=== PATIENT | female | born 1935 | race Asian ===

== ENCOUNTER 2017-12-26 00:21 | Emergency (ER) | payer MEDICAID ==
[2017-12-26] MEDS ORDERED: Aspirin 81 MG Tab.Chew PO ONE (00:29)
--- NOTE | 2017-12-26 01:33 | EDM.PDOC ---
ED HPI GENERAL MEDICAL PROBLEM - General Chief Complaint: Chest Pain Stated Complaint: TROUBLE BREATHING Time Seen by Provider: 12/26/17 00:34 Source of Information: Reports: Patient, Family History Limitations: Reports: Language Barrier - History of Present Illness INITIAL COMMENTS - FREE TEXT/NARRATIVE: 82 y.o. german female with a h/o HTN came to the ed with her family/PC due to chest discomfort and dizziness, which is new to her. No trauma, no h/o heart issues in the past. Pt had poor water intake in the past few days. No other acute medical issues. BP 125/72 Pulse 98 RR 21 Pulse ox 98% on RA Temp 36.8 Onset: Today Onset Date: 12/25/17 Onset Time: 16:00 Duration: Hour(s):, Intermittent Location: Reports: Chest Quality: Reports: Burning Severity: Mild Improves with: Reports: None Worsens with: Reports: Movement Context: Reports: Other Associated Symptoms: Reports: Chest Pain Chest Pain Score (Numeric/FACES): 4 - Related Data Allergies Allergy/AdvReac Type Severity Reaction Status Date / Time acetaminophen [From Tylenol] Allergy Cannot Verified 12/26/17 00:28 Remember aspirin Allergy Cannot Verified 12/26/17 00:37 Remember Home Meds: Home Meds NIFEdipine [Procardia] 10 mg PO DAILY 12/26/17 [History] Past Medical History Cardiovascular History: Reports: Hypertension - Past Surgical History GI Surgical History: Reports: Cholecystectomy Social & Family History - Tobacco Use Smoking Status *Q: Never Smoker - Caffeine Use Caffeine Use: Reports: Coffee - Recreational Drug Use Recreational Drug Use: No ED ROS GENERAL - Review of Systems Review Of Systems: Unable To Obtain (Language barrier) ED EXAM, GENERAL - Physical Exam Exam: See Below Exam Limited By: Language Barrier General Appearance: Alert, WD/WN, Mild Distress Eye Exam: Bilateral Eye: Normal Inspection Ears: Normal External Exam Ear Exam: Bilateral Ear: Auricle Normal Nose: Normal Inspection Throat/Mouth: Normal Lips, Normal Gums, No Airway Compromise, Other (dry mucosal membranes) Head: Atraumatic, Normocephalic Neck: Normal Inspection, Supple, Non-Tender, Full Range of Motion Respiratory/Chest: No Respiratory Distress, Lungs Clear, Normal Breath Sounds, Chest Non-Tender Cardiovascular: Normal Peripheral Pulses, Regular Rate, Rhythm, No Edema, No Gallop, Tachycardia (102) Peripheral Pulses: 1+: Radial (L) GI/Abdominal: Normal Bowel Sounds, Soft, Non-Tender (Female) Exam: Deferred Rectal (Female) Exam: Deferred Back Exam: Normal Inspection, Full Range of Motion Extremities: Normal Inspection, Normal Range of Motion, Non-Tender Neurological: Alert, Oriented, CN II-XII Intact, Normal Cognition, Normal Gait, No Motor/Sensory Deficits Psychiatric: Normal Affect, Normal Mood Skin Exam: Warm, Dry, Intact, Normal Color, No Rash Lymphatic: No Adenopathy EKG INTERPRETATION EKG Date: 12/26/17 Time: 00:30 Rhythm: NSR Rate (Beats/Min): 99 [place]: Normal P-Wave: Present QRS: Normal ST-T: Normal QT: Normal Comparison: NA - No Prior EKG Course - Vital Signs Text/Narrative:: 82 y.o. german female with a h/o HTN came to the ed with her family/PC due to chest discomfort and dizziness, which is new to her. No trauma, no h/o heart issues in the past. Pt had poor water intake in the past few days. No other acute medical issues. BP 125/72 Pulse 98 RR 21 Pulse ox 98% on RA Temp 36.8 PE: WNWD 82 y.o german came with family due to c/p and dizziness. H/O HTN, No prev CAD, dry mucosal membrane Imaging: CXR: NAD Labs: Na 130. K 4.0 BUN 29 Cr 1.4 BUN/Cr ratio elevated BS 256 (pt ate [employer]UM[employer]) Impression: Dehydration, Hyponatremia, Atypical chest pain, elevated BUN/CR ratio TX: Pt drank 1 liter of water here in the ED, Reexam: c/p subsided, pt was able to ambulate well to the bathroom. Plan: D/C with instructions Last Recorded V/S: Last Vital Signs Temp 36.8 C 12/26/17 00:34 Pulse 113 H 12/26/17 01:45 Resp 21 H 12/26/17 00:34 BP 137/81 12/26/17 01:45 Pulse Ox 99 12/26/17 00:34 - Orders/Labs/Meds Orders: Active Orders 24 hr Category Date Time Status CXR [Chest 1V Frontal] [CR] Stat Exams 12/26/17 00:28 Taken UA W/MICROSCOPIC [URIN] Stat Lab 12/26/17 00:57 Ordered Labs: Laboratory Tests 12/26/17 12/26/17 12/26/17 Range/Units 00:40 00:40 00:40 WBC 9.2 (4.5-12.0) X10-3/uL RBC 3.95 (3.23-5.20) x10(6)uL Hgb 10.8 L (11.5-15.5) g/dL Hct 33.6 (30.0-51.3) % MCV 85.3 (80-96) fL MCH 27.5 L (27.7-33.6) pg MCHC 32.2 (32.2-35.4) g/dL RDW 12.3 (11.5-15.5) % Plt Count 220 (125-369) X10(3)uL MPV 7.8 (7.4-10.4) fL Neut % (Auto) 48.2 (46-82) % Lymph % (Auto) 39.3 H (13-37) % [place] % (Auto) 8.1 (4-12) % Eos % (Auto) 4 (1.0-5.0) % Baso % (Auto) 1 (0-2) % Neut # (Auto) 4.5 (1.6-8.3) # Lymph # (Auto) 3.6 (0.6-5.0) # [place] # (Auto) 0.7 (0.0-1.3) # Eos # (Auto) 0.4 (0.0-0.8) # Baso # (Auto) 0.0 (0.0-0.2) # PT 10.5 (8.7-11.1) INR 1.04 (0.89-1.13) Sodium 130 L (135-145) mmol/L Potassium 3.9 (3.5-5.3) mmol/L Chloride 95 L (100-110) mmol/L Carbon Dioxide 22 (21-32) mmol/L BUN 29 H (7-18) mg/dL Creatinine 1.4 H (0.55-1.02) mg/dL Est Cr Clr Drug Dosing 25.35 mL/min Estimated GFR (MDRD) 36 L (>60) BUN/Creatinine Ratio 20.7 H (9-20) Glucose 271 H (80-116) mg/dL Calcium 8.8 (8.6-10.2) mg/dL Troponin I (<0.017-0.056) ng/mL Urine Color (YELLOW) Urine Appearance (CLEAR) Urine pH (5.0-6.5) Ur Specific [place] (1.010-1.025) Urine Protein (NEGATIVE) mg/dL Urine Glucose (UA) (NEGATIVE) mg/dL Urine Ketones (NEGATIVE) mg/dL Urine Occult Blood (NEGATIVE) Urine Nitrite (NEGATIVE) Urine Bilirubin (NEGATIVE) Urine Urobilinogen (NEGATIVE) mg/dL Ur Leukocyte Esterase (NEGATIVE) Urine RBC (0) Urine WBC (0) Ur Squamous Epith Cells (NS,R,O) Urine Bacteria (NS) 12/26/17 12/26/17 Range/Units 00:40 00:57 WBC (4.5-12.0) X10-3/uL RBC (3.23-5.20) x10(6)uL Hgb (11.5-15.5) g/dL Hct (30.0-51.3) % MCV (80-96) fL MCH (27.7-33.6) pg MCHC (32.2-35.4) g/dL RDW (11.5-15.5) % Plt Count (125-369) X10(3)uL MPV (7.4-10.4) fL Neut % (Auto) (46-82) % Lymph % (Auto) (13-37) % [place] % (Auto) (4-12) % Eos % (Auto) (1.0-5.0) % Baso % (Auto) (0-2) % Neut # (Auto) (1.6-8.3) # Lymph # (Auto) (0.6-5.0) # [place] # (Auto) (0.0-1.3) # Eos # (Auto) (0.0-0.8) # Baso # (Auto) (0.0-0.2) # PT (8.7-11.1) INR (0.89-1.13) Sodium (135-145) mmol/L Potassium (3.5-5.3) mmol/L Chloride (100-110) mmol/L Carbon Dioxide (21-32) mmol/L BUN (7-18) mg/dL Creatinine (0.55-1.02) mg/dL Est Cr Clr Drug Dosing mL/min Estimated GFR (MDRD) (>60) BUN/Creatinine Ratio (9-20) Glucose (80-116) mg/dL Calcium (8.6-10.2) mg/dL Troponin I < 0.017 L (<0.017-0.056) ng/mL Urine Color Yellow (YELLOW) Urine Appearance Slightly cloudy (CLEAR) Urine pH 5.0 (5.0-6.5) Ur Specific [place] 1.005 L (1.010-1.025) Urine Protein Negative (NEGATIVE) mg/dL Urine Glucose (UA) 100 H (NEGATIVE) mg/dL Urine Ketones Negative (NEGATIVE) mg/dL Urine Occult Blood Negative (NEGATIVE) Urine Nitrite Negative (NEGATIVE) Urine Bilirubin Negative (NEGATIVE) Urine Urobilinogen Normal (NEGATIVE) mg/dL Ur Leukocyte Esterase Negative (NEGATIVE) Urine RBC 0-5 (0) Urine WBC 5-10 (0) Ur Squamous Epith Cells Few H (NS,R,O) Urine Bacteria Many H (NS) Meds: Medications Discontinued Medications Generic Name Dose Route Start Last Admin Trade Name Freq PRN Reason Stop Dose Admin Aspirin 324 mg 12/26/17 00:29 Aspirin PO 12/26/17 00:30 ONETIME ONE Departure - Departure Time of Disposition: 01:35 Disposition: Home, Self-Care 01 Condition: Good Clinical Impression: Dehydration, Hyponatremia, Abnormal TSC-jb-[id number] ratio, Tachycardia Instructions: Dehydration, Elderly, [id number] Referrals: PCP,None [Primary Care Provider] - Forms: ED Department Discharge Additional Instructions: Please increase water intake, please f/u with your Doctor, please come back to the ED if your symptoms get worse acutely - My Orders Last 24 Hours: My Active Orders 12/26/17 00:28 CXR [Chest 1V Frontal] [CR] Stat 12/26/17 00:57 UA W/MICROSCOPIC [URIN] Stat - Assessment/Plan Last 24 Hours: My Active Orders 12/26/17 00:28 CXR [Chest 1V Frontal] [CR] Stat 12/26/17 00:57 UA W/MICROSCOPIC [URIN] Stat
--- NOTE | 2017-12-26 11:28 | CR ---
INDICATION: Chest pain. CHEST: Two AP upright portable views of the chest were obtained 12/26/2017. No comparisons were available. The heart appears to be normal in size and shape. The aorta is tortuous with calcification in the arch. Overlying EKG leads are noted. A definite active infiltrate or effusion was not identified, although there is some faint increased density in the upper lateral lung field on the right, which could represent a minimal area of infiltrate. Also, a similar area of slightly increased density is seen near the left costophrenic angle and similarly could be on the basis of minimal patchy pneumonia and/or fibrosis. The lungs appear to be slightly hyperaerated. IMPRESSION: 1. No definite acute process, but cannot exclude minimal areas of pneumonia at the upper lateral lung field on the right and at the left costophrenic angle. 2. ASD aorta. 3. Suggestion of hyperaeration. MTDD
== END 2017-12-26 01:45 | disposition home or self-care (01) ==
LOC: FB.ED 00:21
DX: R00.0 Tachycardia, unspecified (principal); E87.1 Hypo-osmolality and hyponatremia; E86.0 Dehydration; R94.4 Abnormal results of kidney function studies; I10 Essential (primary) hypertension; Z88.6 Allergy status to analgesic agent; Z88.8 Allergy status to other drugs, medicaments and biological substances
CPT/HCPCS: 36415; 71045; 80048; 81001; 84484; 85025; 85610; 99285

== ENCOUNTER 2018-02-06 23:26 | Emergency (ER) | payer MEDICAID ==
[2018-02-06] MEDS: Sodium Chloride 0.9% 10 ML Syringe FLUSH PRN (23:57)
[2018-02-07] MEDS: Labetalol 20 MG/4 ML Syringe IVPUSH ONE (00:02)
--- NOTE | 2018-02-07 00:52 | ER ---
DATE SEEN: 02/06/2018 REASON FOR VISIT: Hypertension. HISTORY OF PRESENT ILLNESS: An 82-year-old female with elevated blood pressure, the pressure has been up since the nifedipine was discontinued at the clinic today, measuring up to 220 systolic. She complains of mild dizziness and mild headache and chest pressure. She is accompanied by family members. REVIEW OF SYSTEMS: No nausea, vomiting, or visual disturbance. No weakness of one side. ALLERGIES: Acetaminophen and aspirin. SOCIAL HISTORY: She does not smoke or drink. PHYSICAL EXAMINATION: VITAL SIGNS: Initial blood pressure was 228/104, temp 98.2, and pulse was 70 beats a minute. EARS, NOSE, AND THROAT: Negative. HEAD: Normal size. NECK: No carotid bruits. CHEST: Clear. CARDIOVASCULAR: Normal. MENTAL STATUS: Flat affect. LABORATORIES: Initial labs are normal, with the exception of sodium, which was 128. Creatinine was 1.2. Troponin 0.063. DIAGNOSTIC DATA: EKG: I reviewed her EKG, and it showed no ST changes. It was completely normal. FINAL IMPRESSION: 1. Hypertensive emergency. 2. Hyponatremia. PLAN: I gave IV labetalol 20 mg. Her blood pressure came down to 157 systolic. I discharged her home. She is asymptomatic at this time with no pain. I would like her to follow up in the office in the next 2 to 3 days and return to the ED with any worsening chest pain, shortness of breath, or headache. I advised to increase metoprolol to 50 mg b.i.d. /[id number] RONEN/PRIYANKA
== END 2018-02-07 00:28 | disposition home or self-care (01) ==
LOC: FB.ED 23:26
DX: I16.1 Hypertensive emergency (principal); I10 Essential (primary) hypertension; E87.1 Hypo-osmolality and hyponatremia; Z79.899 Other long term (current) drug therapy
CPT/HCPCS: 36415; 80048; 84484; 85025; 93005; 96374; 99284; J7050

== ENCOUNTER 2018-11-21 20:26 | Inpatient (IN) | payer MEDICAID ==
[2018-11-21] MEDS ORDERED: Albuterol/Ipratropium 3.0-0.5 MG/3 ML Neb Soln NEB ONE (20:31)
[2018-11-21] MEDS ORDERED: Sodium Chloride 0.9% 1,000 ML IV ONE (20:31)
--- NOTE | 2018-11-21 20:33 | EDM.PDOC ---
ED HPI GENERAL MEDICAL PROBLEM - General Stated Complaint: DIZZY Time Seen by Provider: 11/21/18 20:26 Source of Information: Reports: Patient, Family History Limitations: Reports: Altered Mental Status, Physical Impairment - History of Present Illness INITIAL COMMENTS - FREE TEXT/NARRATIVE: 82 y.o. female was brought to the ED by her family due to SOB, weakness, unable to sleep, nauseated, chest pressure and poor po intake. Pt is a poor historian. HPI was given by her family. No other acute med. issues. BP 161/64 RR 17 Pulse ox 96 % on RA Pulse 63 Temp 36.8 Onset Date: 11/19/18 Onset Time: 07:00 Duration: Day(s):, Getting Worse, Intermittent Location: Reports: Head, Chest Quality: Reports: Dull Severity: Moderate Improves with: Reports: Rest Worsens with: Reports: Movement Context: Reports: Other Associated Symptoms: Reports: Confusion, Loss of Appetite, Shortness of Breath, Weakness - Related Data Allergies Allergy/AdvReac Type Severity Reaction Status Date / Time acetaminophen [From Tylenol] Allergy Cannot Verified 11/21/18 20:29 Remember aspirin Allergy Cannot Verified 11/21/18 20:29 Remember ibuprofen Allergy Difficulty Verified 11/22/18 01:46 Breathing Home Meds: Home Meds FA/Lycopene/Lut/MV,Ca,Iron,Min [Centrum] 1 tab PO DAILY 02/07/18 [History] Diltiazem HCl [Cartia Xt] 240 mg PO DAILY 11/22/18 [History] Diltiazem [Cardizem CD] 120 mg PO DAILY 11/22/18 [History] Past Medical History HEENT History: Reports: Impaired Vision Cardiovascular History: Reports: High Cholesterol, Hypertension Gastrointestinal History: Reports: Gastritis, Other (See Below) Other Gastrointestinal History: GI ulcer - Past Surgical History GI Surgical History: Reports: Cholecystectomy Social & Family History - Family History Family Medical History: Unobtainable - Caffeine Use Caffeine Use: Reports: Coffee ED ROS GENERAL - Review of Systems Review Of Systems: Unable To Obtain ED EXAM, GENERAL - Physical Exam Exam: See Below Exam Limited By: Altered Mental Status General Appearance: Alert, Mild Distress, Thin Eye Exam: Bilateral Eye: Normal Inspection Ears: Other (righ OM) Ear Exam: Right Ear: TM Bulging, Bilateral Ear: Auricle Normal Nose: Normal Inspection Throat/Mouth: Normal Lips, Normal Voice, No Airway Compromise Head: Atraumatic, Normocephalic Neck: Normal Inspection, Supple, Non-Tender, Full Range of Motion Respiratory/Chest: No Respiratory Distress Cardiovascular: Normal Peripheral Pulses, Regular Rate, Rhythm, No Edema Peripheral Pulses: 1+: Brachial (R) GI/Abdominal: Normal Bowel Sounds, Soft, Non-Tender, No Organomegaly, Pelvis Stable (Female) Exam: Deferred Rectal (Female) Exam: Deferred Back Exam: Normal Inspection, Full Range of Motion Extremities: Normal Inspection, Normal Range of Motion, Non-Tender, No Pedal Edema Neurological: Alert, Oriented, CN II-XII Intact, Other (too weak to ambulate) Psychiatric: Normal Affect, Normal Mood Skin Exam: Warm, Dry, Intact, Normal Color, No Rash Lymphatic: No Adenopathy EKG INTERPRETATION EKG Date: 11/21/18 Time: 20:25 Rhythm: NSR Rate (Beats/Min): 63 [place]: Normal P-Wave: Present QRS: Normal ST-T: Normal QT: Normal Comparison: NA - No Prior EKG Course - Vital Signs Text/Narrative:: 82 y.o. female was brought to the ED by her family due to SOB, weakness, unable to sleep, nauseated, chest pressure and poor po intake. Pt is a poor historian. HPI was given by her family. No other acute med. issues. BP 161/64 RR 17 Pulse ox 96 % on RA Pulse 63 Temp 36.8 PE: This pilipino female with multiple medical complains Imaging: CXR: NAD, official report is pending CT Head: Max sinusitis, Otitis media right ear, parenchymal calcifications, age related atrophy Labs: CBC was , HGB was 10.6 however, Na was 111. Cl was 77 BUN 17 Cr 1.2 GFR 43 Mg 1.4 Impression: Hyponatremia, Hypomagnesia, dehydration, sinusitis, Right OM, weakness Tx: Duoneb, NS, MG, Rocephin 9.10 pm Consultation: Dr. Mora: Agreed to admit pt to ICU Reexam: Improved Plan: Admit to ICU Last Recorded V/S: Last Vital Signs Temp 36.6 C 11/22/18 07:58 Pulse 53 L 11/22/18 07:58 Resp 16 11/22/18 07:58 BP 128/54 L 11/22/18 07:58 Pulse Ox 98 11/22/18 07:58 - Orders/Labs/Meds Orders: Active Orders 24 hr Category Date Time Status EKG Documentation Completion [RC] ASDIRECTED Care 11/21/18 20:32 Active RT Aerosol Therapy [RC] ASDIRECTED Care 11/21/18 20:32 Active Chest 1V Frontal [CR] Stat Exams 11/21/18 20:31 Taken Head wo Cont [CT] Stat Exams 11/21/18 21:15 Taken CULTURE URINE [RM] Stat Lab 11/21/18 20:35 Received EKG 12 Lead [EK] Routine Ther 11/21/18 20:31 Ordered Medication Orders Sodium Chloride (Normal Saline) 1,000 mls @ 125 mls/hr IV ASDIRECTED COUNTS INCLUDE 234 BEDS AT THE [facility] Last Admin: 11/22/18 07:46 Dose: 125 mls/hr Infusion: 11/22/18 06:45 Dose: 125 mls/hr Admin: 11/21/18 22:45 Dose: 125 mls/hr Nitrofurantoin Macrocrystals (Macrobid) 100 mg PO BID COUNTS INCLUDE 234 BEDS AT THE [facility] Last Admin: 11/22/18 10:19 Dose: 100 mg Ondansetron HCl (Zofran) 4 mg IV Q4H PRN PRN Reason: Nausea/Vomiting Pneumococcal Polyvalent Vaccine (Pneumovax 23) 0.5 ml IM .ONCE ONE Stop: 11/23/18 09:01 Sodium Chloride (Saline Flush) 10 ml FLUSH ASDIRECTED PRN PRN Reason: Keep Vein Open Labs: Laboratory Tests 11/21/18 11/21/18 11/21/18 Range/Units 20:35 20:45 20:45 WBC 10.4 (4.5-12.0) X10-3/uL RBC 3.96 (3.23-5.20) x10(6)uL Hgb 10.9 L (11.5-15.5) g/dL Hct 33.1 (30.0-51.3) % MCV 83.4 (80-96) fL MCH 27.6 L (27.7-33.6) pg MCHC 33.0 (32.2-35.4) g/dL RDW 12.0 (11.5-15.5) % Plt Count 248 (125-369) X10(3)uL MPV 7.2 L (7.4-10.4) fL Neut % (Auto) 58.5 (46-82) % Lymph % (Auto) 31.4 (13-37) % [place] % (Auto) 8.1 (4-12) % Eos % (Auto) 2 (1.0-5.0) % Baso % (Auto) 0 (0-2) % Neut # (Auto) 6.1 (1.6-8.3) # Lymph # (Auto) 3.3 (0.6-5.0) # [place] # (Auto) 0.8 (0.0-1.3) # Eos # (Auto) 0.2 (0.0-0.8) # Baso # (Auto) 0.0 (0.0-0.2) # PT 9.9 (8.7-11.1) INR 1.02 (0.89-1.13) D-Dimer, Quantitative 0.59 (0.0-0.59) mg/LFEU Sodium (135-145) mmol/L Potassium (3.5-5.3) mmol/L Chloride (100-110) mmol/L Carbon Dioxide (21-32) mmol/L BUN (7-18) mg/dL Creatinine (0.55-1.02) mg/dL Est Cr Clr Drug Dosing mL/min Estimated GFR (MDRD) (>60) BUN/Creatinine Ratio (9-20) Glucose (80-116) mg/dL Calcium (8.6-10.2) mg/dL Magnesium (1.8-2.5) mg/dL Troponin I (<0.017-0.056) ng/mL Urine Color Yellow (YELLOW) Urine Appearance Cloudy (CLEAR) Urine pH 5.0 (5.0-6.5) Ur Specific [place] 1.005 L (1.010-1.025) Urine Protein Negative (NEGATIVE) mg/dL Urine Glucose (UA) Normal (NEGATIVE) mg/dL Urine Ketones Negative (NEGATIVE) mg/dL Urine Occult Blood Moderate H (NEGATIVE) Urine Nitrite Negative (NEGATIVE) Urine Bilirubin Negative (NEGATIVE) Urine Urobilinogen Normal (NEGATIVE) mg/dL Ur Leukocyte Esterase Large H (NEGATIVE) Urine RBC 20-30 H (0) Urine WBC >100 H (0) Ur Squamous Epith Cells Few H (NS,R,O) Urine Bacteria Many H (NS) 11/21/18 11/21/18 Range/Units 20:45 20:45 WBC (4.5-12.0) X10-3/uL RBC (3.23-5.20) x10(6)uL Hgb (11.5-15.5) g/dL Hct (30.0-51.3) % MCV (80-96) fL MCH (27.7-33.6) pg MCHC (32.2-35.4) g/dL RDW (11.5-15.5) % Plt Count (125-369) X10(3)uL MPV (7.4-10.4) fL Neut % (Auto) (46-82) % Lymph % (Auto) (13-37) % [place] % (Auto) (4-12) % Eos % (Auto) (1.0-5.0) % Baso % (Auto) (0-2) % Neut # (Auto) (1.6-8.3) # Lymph # (Auto) (0.6-5.0) # [place] # (Auto) (0.0-1.3) # Eos # (Auto) (0.0-0.8) # Baso # (Auto) (0.0-0.2) # PT (8.7-11.1) INR (0.89-1.13) D-Dimer, Quantitative (0.0-0.59) mg/LFEU Sodium 111 L* D (135-145) mmol/L Potassium 4.1 (3.5-5.3) mmol/L Chloride 78 L* D (100-110) mmol/L Carbon Dioxide 23 (21-32) mmol/L BUN 17 (7-18) mg/dL Creatinine 1.2 H (0.55-1.02) mg/dL Est Cr Clr Drug Dosing 26.86 mL/min Estimated GFR (MDRD) 43 L (>60) BUN/Creatinine Ratio 14.2 (9-20) Glucose 204 H D (80-116) mg/dL Calcium 8.6 (8.6-10.2) mg/dL Magnesium 1.4 L (1.8-2.5) mg/dL Troponin I 0.032 (<0.017-0.056) ng/mL Urine Color (YELLOW) Urine Appearance (CLEAR) Urine pH (5.0-6.5) Ur Specific [place] (1.010-1.025) Urine Protein (NEGATIVE) mg/dL Urine Glucose (UA) (NEGATIVE) mg/dL Urine Ketones (NEGATIVE) mg/dL Urine Occult Blood (NEGATIVE) Urine Nitrite (NEGATIVE) Urine Bilirubin (NEGATIVE) Urine Urobilinogen (NEGATIVE) mg/dL Ur Leukocyte Esterase (NEGATIVE) Urine RBC (0) Urine WBC (0) Ur Squamous Epith Cells (NS,R,O) Urine Bacteria (NS) Meds: Medications Generic Name Dose Route Start Last Admin Trade Name Freq PRN Reason Stop Dose Admin Sodium Chloride 1,000 mls @ 125 mls/hr 11/21/18 22:45 11/22/18 07:46 Normal Saline IV 125 mls/hr ASDIRECTED VERONICA Administration Nitrofurantoin Macrocrystals 100 mg 11/22/18 10:00 11/22/18 10:19 Macrobid PO 100 mg BID VERONICA Administration Ondansetron HCl 4 mg 11/21/18 22:36 Zofran IV Q4H PRN Nausea/Vomiting Pneumococcal Polyvalent Vaccine 0.5 ml 11/23/18 09:00 Pneumovax 23 IM 11/23/18 09:01 .ONCE ONE Sodium Chloride 10 ml 11/21/18 22:36 Saline Flush FLUSH ASDIRECTED PRN Keep Vein Open Discontinued Medications Generic Name Dose Route Start Last Admin Trade Name Freq PRN Reason Stop Dose Admin Albuterol/Ipratropium 3 ml 11/21/18 20:31 11/21/18 20:40 Duoneb 3.0-0.5 Mg/3 Ml NEB 11/21/18 20:32 3 ml ONETIME ONE Administration Sodium Chloride 1,000 mls @ 999 mls/hr 11/21/18 20:31 11/21/18 20:44 Normal Saline IV 11/21/18 21:31 999 mls/hr .BOLUS ONE Administration Magnesium Sulfate 2 gm/ Premix 50 mls @ 150 mls/hr 11/21/18 21:14 11/21/18 21 :17 IV 11/21/18 21:33 55 mls/hr ONETIME ONE Administration Ceftriaxone Sodium 1 gm/ 50 mls @ 200 mls/hr 11/21/18 22:35 11/21/18 22:42 Sodium Chloride IV 11/21/18 22:49 200 mls/hr ONETIME ONE Administration Ketorolac Tromethamine 15 mg 11/22/18 01:11 11/22/18 07:42 Toradol IVPUSH 11/22/18 01:12 Not Given ONETIME STA Naproxen 500 mg 11/22/18 01:24 11/22/18 01:56 Naprosyn PO 11/22/18 01:25 500 mg ONETIME ONE Administration Sodium Chloride 10 ml 11/21/18 20:40 11/21/18 20:40 Saline Flush FLUSH 10 ml ASDIRECTED PRN Administration IV Use Departure - Departure Time of Disposition: 20:00 Disposition: Admitted As Inpatient 68 Condition: Fair Clinical Impression: Hyponatremia - Discharge Information - My Orders Last 24 Hours: My Active Orders 11/21/18 20:31 Chest 1V Frontal [CR] Stat EKG 12 Lead [EK] Routine 11/21/18 20:32 EKG Documentation Completion [RC] ASDIRECTED RT Aerosol Therapy [RC] ASDIRECTED 11/21/18 20:35 CULTURE URINE [RM] Stat 11/21/18 21:15 Head wo Cont [CT] Stat - Assessment/Plan Last 24 Hours: My Active Orders 11/21/18 20:31 Chest 1V Frontal [CR] Stat EKG 12 Lead [EK] Routine 11/21/18 20:32 EKG Documentation Completion [RC] ASDIRECTED RT Aerosol Therapy [RC] ASDIRECTED 11/21/18 20:35 CULTURE URINE [RM] Stat 11/21/18 21:15 Head wo Cont [CT] Stat
[2018-11-21] MEDS ORDERED: Sodium Chloride 0.9% 10 ML Syringe FLUSH PRN ×2 (20:40→22:36)
[2018-11-21] MEDS ORDERED: Magnesium Sulfate/Water 2 GM in Premix Bag 1 BAG IV ONE (21:14)
[2018-11-21] MEDS ORDERED: cefTRIAXone 1 GM in Sodium Chloride 0.9% 50 ML IV ONE (22:35)
[2018-11-21] MEDS ORDERED: Ondansetron 4 MG/2 ML SDV IV PRN (22:36)
[2018-11-21] MEDS: Sodium Chloride 0.9% 1,000 ML IV SCH (22:45)
[2018-11-22] MEDS ORDERED: Ketorolac 30 MG/ML SDV IVPUSH STA (01:11)
[2018-11-22] MEDS ORDERED: Naproxen 500 MG Tab PO ONE (01:24)
[2018-11-22] MEDS: Sodium Chloride 0.9% 1,000 ML IV SCH (07:46)
[2018-11-22 09:14] LABS: HEMOGLOBIN A1C 6.2 % (4.5-6.2)
--- NOTE | 2018-11-22 09:32 | PCM.HP ---
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 Per patient's family, she was not feeling well for a week. Mainly, fatigue, weakness, dizziness, SOB on exertion, no chest pain, but there is chest tightness. they also notice decrease appetite, nausea, no vomiting. she also c/o multiple joints pain, but this is chronic due to her arthritis. Patient had uncontrolled Blood pressure, her BP range between 180-200 for systolic at home. she was on Losartan for years , recently a month ago, around mid of October, her PCP changed her medication ( family unsure of the name of her medication). After starting this new medication , she start feeling dizzy. she went again to her PCP in fall, and her PCP changed her medication again (still unsure of the medication, maybe it's Diltazem). Patient has been taking this medications for 2 weeks now. she also noticed some increase in her urine frequency, but not burning, no blood in her urine. she has been drinking a lot of fluid recnetly with and some Beets juicy as she heard that it help with her BP. Patient denies smoking, she quite long time ago. no alcohol. no other OTC or illicit drugs use. Duration of Symptoms: Reports: Week(s): - Related Data Allergies/Adverse Reactions: Allergies Allergy/AdvReac Type Severity Reaction Status Date / Time acetaminophen [From Tylenol] Allergy Cannot Verified 11/21/18 20:29 Remember aspirin Allergy Cannot Verified 11/21/18 20:29 Remember ibuprofen Allergy Difficulty Verified 11/22/18 01:46 Breathing Home Medications: Home Meds FA/Lycopene/Lut/MV,Ca,Iron,Min [Centrum] 1 tab PO DAILY 02/07/18 [History] Diltiazem HCl [Cartia Xt] 240 mg PO DAILY 11/22/18 [History] Diltiazem [Cardizem CD] 120 mg PO DAILY 11/22/18 [History] Past Medical History HEENT History: Reports: Impaired Vision Other HEENT History: wears glasses Cardiovascular History: Reports: High Cholesterol Respiratory History: Reports: Asthma Gastrointestinal History: Reports: Gastritis, Other (See Below) Other Gastrointestinal History: GI ulcer [employer]ER History: Reports: Musculoskeletal History: Reports: Arthritis Neurological History: Reports: Vertigo Dermatologic History: Reports: Other (See Below) Other Dermatologic History: dry skin - Past Surgical History GI Surgical History: Reports: Cholecystectomy Social & Family History - Family History Family Medical History: Unobtainable - Tobacco Use Smoking Status *Q: Former Smoker Second Hand Smoke Exposure: No - Caffeine Use Caffeine Use: Reports: Coffee - Alcohol Use Alcohol Use History: No H&P Review of Systems - Review of Systems: Review Of Systems: See Below General: Reports: Chills, Weakness, Fatigue, Decreased Appetite HEENT: Reports: Headaches Pulmonary: Reports: Shortness of Breath Cardiovascular: Reports: Lightheadedness, Blood Pressure Problem Gastrointestinal: Reports: Abdominal Pain, Decreased Appetite, Nausea Genitourinary: Reports: Frequency Musculoskeletal: Reports: Neck Pain Skin: Reports: Bruising Psychiatric: Reports: No Symptoms Neurological: Reports: Dizziness, Numbness Hematologic/Lymphatic: Reports: Easy Bruising Immunologic: Reports: No Symptoms Exam - Exam Exam: See Below - Vital Signs Vital Signs: Last Vital Signs Temp 36.6 C 11/22/18 07:58 Pulse 53 L 11/22/18 07:58 Resp 16 11/22/18 07:58 BP 128/54 L 11/22/18 07:58 Pulse Ox 98 11/22/18 07:58 Weight: 59.466 kg - Exam General: Alert, Oriented HEENT: PERRLA, Conjunctiva Clear Neck: Supple Lungs: Clear to Auscultation, Normal Respiratory Effort Cardiovascular: Regular Rate, Regular Rhythm, Bradycardia GI/Abdominal Exam: Normal Bowel Sounds, Soft, Non-Tender Back Exam: Normal Inspection, Full Range of Motion Extremities: Normal Inspection, Normal Range of Motion, Non-Tender, No Pedal Edema Skin: Warm Neuro Extensive - Mental Status: Alert, Oriented x3, Normal Mood/Affect Psychiatric: Alert, Normal Affect, Normal Mood - Patient Data Lab Results Last 24 hrs: Laboratory Results - last 24 hr 11/21/18 11/21/18 11/21/18 Range/Units 20:35 20:45 20:45 WBC 10.4 (4.5-12.0) X10-3/uL RBC 3.96 (3.23-5.20) x10(6)uL Hgb 10.9 L (11.5-15.5) g/dL Hct 33.1 (30.0-51.3) % MCV 83.4 (80-96) fL MCH 27.6 L (27.7-33.6) pg MCHC 33.0 (32.2-35.4) g/dL RDW 12.0 (11.5-15.5) % Plt Count 248 (125-369) X10(3)uL MPV 7.2 L (7.4-10.4) fL Neut % (Auto) 58.5 (46-82) % Lymph % (Auto) 31.4 (13-37) % Avery % (Auto) 8.1 (4-12) % Eos % (Auto) 2 (1.0-5.0) % Baso % (Auto) 0 (0-2) % Neut # (Auto) 6.1 (1.6-8.3) # Lymph # (Auto) 3.3 (0.6-5.0) # Avery # (Auto) 0.8 (0.0-1.3) # Eos # (Auto) 0.2 (0.0-0.8) # Baso # (Auto) 0.0 (0.0-0.2) # PT 9.9 (8.7-11.1) INR 1.02 (0.89-1.13) D-Dimer, Quantitative 0.59 (0.0-0.59) mg/LFEU Sodium (135-145) mmol/L Potassium (3.5-5.3) mmol/L Chloride (100-110) mmol/L Carbon Dioxide (21-32) mmol/L BUN (7-18) mg/dL Creatinine (0.55-1.02) mg/dL Est Cr Clr Drug Dosing mL/min Estimated GFR (MDRD) (>60) BUN/Creatinine Ratio (9-20) Glucose (80-116) mg/dL Calcium (8.6-10.2) mg/dL Magnesium (1.8-2.5) mg/dL Total Bilirubin (0.1-1.3) mg/dL AST (5-25) IU/L ALT (12-36) U/L Alkaline Phosphatase (56-112) IU/L Troponin I (<0.017-0.056) ng/mL Total Protein (6.0-8.0) g/dL Albumin (3.2-4.6) g/dL Globulin g/dL Albumin/Globulin Ratio Urine Color Yellow (YELLOW) Urine Appearance Cloudy (CLEAR) Urine pH 5.0 (5.0-6.5) Ur Specific Upton 1.005 L (1.010-1.025) Urine Protein Negative (NEGATIVE) mg/dL Urine Glucose (UA) Normal (NEGATIVE) mg/dL Urine Ketones Negative (NEGATIVE) mg/dL Urine Occult Blood Moderate H (NEGATIVE) Urine Nitrite Negative (NEGATIVE) Urine Bilirubin Negative (NEGATIVE) Urine Urobilinogen Normal (NEGATIVE) mg/dL Ur Leukocyte Esterase Large H (NEGATIVE) Urine RBC 20-30 H (0) Urine WBC >100 H (0) Ur Squamous Epith Cells Few H (NS,R,O) Urine Bacteria Many H (NS) 11/21/18 11/21/18 11/22/18 Range/Units 20:45 20:45 08:20 WBC 5.7 (4.5-12.0) X10-3/uL RBC 3.47 (3.23-5.20) x10(6)uL Hgb 9.7 L (11.5-15.5) g/dL Hct 29.1 L (30.0-51.3) % MCV 84.1 (80-96) fL MCH 28.0 (27.7-33.6) pg MCHC 33.4 (32.2-35.4) g/dL RDW 12.0 (11.5-15.5) % Plt Count 214 (125-369) X10(3)uL MPV 6.9 L (7.4-10.4) fL Neut % (Auto) 52.8 (46-82) % Lymph % (Auto) 30.3 (13-37) % Avery % (Auto) 14.5 H (4-12) % Eos % (Auto) 2 (1.0-5.0) % Baso % (Auto) 1 (0-2) % Neut # (Auto) 3.1 (1.6-8.3) # Lymph # (Auto) 1.7 (0.6-5.0) # Avery # (Auto) 0.8 (0.0-1.3) # Eos # (Auto) 0.1 (0.0-0.8) # Baso # (Auto) 0.0 (0.0-0.2) # PT (8.7-11.1) INR (0.89-1.13) D-Dimer, Quantitative (0.0-0.59) mg/LFEU Sodium 111 L* D (135-145) mmol/L Potassium 4.1 (3.5-5.3) mmol/L Chloride 78 L* D (100-110) mmol/L Carbon Dioxide 23 (21-32) mmol/L BUN 17 (7-18) mg/dL Creatinine 1.2 H (0.55-1.02) mg/dL Est Cr Clr Drug Dosing 26.86 mL/min Estimated GFR (MDRD) 43 L (>60) BUN/Creatinine Ratio 14.2 (9-20) Glucose 204 H D (80-116) mg/dL Calcium 8.6 (8.6-10.2) mg/dL Magnesium 1.4 L (1.8-2.5) mg/dL Total Bilirubin (0.1-1.3) mg/dL AST (5-25) IU/L ALT (12-36) U/L Alkaline Phosphatase (56-112) IU/L Troponin I 0.032 (<0.017-0.056) ng/mL Total Protein (6.0-8.0) g/dL Albumin (3.2-4.6) g/dL Globulin g/dL Albumin/Globulin Ratio Urine Color (YELLOW) Urine Appearance (CLEAR) Urine pH (5.0-6.5) Ur Specific Upton (1.010-1.025) Urine Protein (NEGATIVE) mg/dL Urine Glucose (UA) (NEGATIVE) mg/dL Urine Ketones (NEGATIVE) mg/dL Urine Occult Blood (NEGATIVE) Urine Nitrite (NEGATIVE) Urine Bilirubin (NEGATIVE) Urine Urobilinogen (NEGATIVE) mg/dL Ur Leukocyte Esterase (NEGATIVE) Urine RBC (0) Urine WBC (0) Ur Squamous Epith Cells (NS,R,O) Urine Bacteria (NS) 11/22/18 Range/Units 08:20 WBC (4.5-12.0) X10-3/uL RBC (3.23-5.20) x10(6)uL Hgb (11.5-15.5) g/dL Hct (30.0-51.3) % MCV (80-96) fL MCH (27.7-33.6) pg MCHC (32.2-35.4) g/dL RDW (11.5-15.5) % Plt Count (125-369) X10(3)uL MPV (7.4-10.4) fL Neut % (Auto) (46-82) % Lymph % (Auto) (13-37) % Avery % (Auto) (4-12) % Eos % (Auto) (1.0-5.0) % Baso % (Auto) (0-2) % Neut # (Auto) (1.6-8.3) # Lymph # (Auto) (0.6-5.0) # Avery # (Auto) (0.0-1.3) # Eos # (Auto) (0.0-0.8) # Baso # (Auto) (0.0-0.2) # PT (8.7-11.1) INR (0.89-1.13) D-Dimer, Quantitative (0.0-0.59) mg/LFEU Sodium 120 L (135-145) mmol/L Potassium 4.0 (3.5-5.3) mmol/L Chloride 89 L* D (100-110) mmol/L Carbon Dioxide 22 (21-32) mmol/L BUN 13 (7-18) mg/dL Creatinine 1.1 H (0.55-1.02) mg/dL Est Cr Clr Drug Dosing 32.26 mL/min Estimated GFR (MDRD) 48 L (>60) BUN/Creatinine Ratio 11.8 (9-20) Glucose 141 H (80-116) mg/dL Calcium 7.9 L (8.6-10.2) mg/dL Magnesium (1.8-2.5) mg/dL Total Bilirubin 0.3 (0.1-1.3) mg/dL AST 23 (5-25) IU/L ALT 22 (12-36) U/L Alkaline Phosphatase 86 (56-112) IU/L Troponin I (<0.017-0.056) ng/mL Total Protein 6.3 (6.0-8.0) g/dL Albumin 2.7 L (3.2-4.6) g/dL Globulin 3.6 g/dL Albumin/Globulin Ratio 0.8 Urine Color (YELLOW) Urine Appearance (CLEAR) Urine pH (5.0-6.5) Ur Specific Upton (1.010-1.025) Urine Protein (NEGATIVE) mg/dL Urine Glucose (UA) (NEGATIVE) mg/dL Urine Ketones (NEGATIVE) mg/dL Urine Occult Blood (NEGATIVE) Urine Nitrite (NEGATIVE) Urine Bilirubin (NEGATIVE) Urine Urobilinogen (NEGATIVE) mg/dL Ur Leukocyte Esterase (NEGATIVE) Urine RBC (0) Urine WBC (0) Ur Squamous Epith Cells (NS,R,O) Urine Bacteria (NS) Result Diagrams: 11/22/18 08:20 11/22/18 08:20 - Problem List (1) COLE (acute kidney injury) SNOMED Code(s): 27273671 ICD Code: N17.9 - ACUTE KIDNEY FAILURE, UNSPECIFIED Status: Acute Current Visit: Yes (2) Hyponatremia SNOMED Code(s): 79484298 ICD Code: E87.1 - HYPO-OSMOLALITY AND HYPONATREMIA Status: Acute Current Visit: No (3) UTI (urinary tract infection) SNOMED Code(s): 63982727 ICD Code: N39.0 - URINARY TRACT INFECTION, SITE NOT SPECIFIED Status: Acute Current Visit: Yes (4) Hypertension SNOMED Code(s): 74115815 ICD Code: I10 - ESSENTIAL (PRIMARY) HYPERTENSION Status: Acute Current Visit: Yes Problem List Initiated/Reviewed/Updated: Yes Orders Last 24hrs: Active Orders 24 hr Category Date Time Status Patient Status [ADT] Routine ADT 11/21/18 22:36 Active EKG Documentation Completion [RC] ASDIRECTED Care 11/21/18 20:32 Active Oxygen Therapy [RC] PRN Care 11/21/18 22:36 Active RT Aerosol Therapy [RC] ASDIRECTED Care 11/21/18 20:32 Active Up With Assistance [RC] ASDIRECTED Care 11/21/18 22:36 Active VTE/DVT Education [RC] Per Unit Routine Care 11/21/18 22:36 Active Vital Signs [RC] 08,12,16,20,00,04 Care 11/21/18 22:36 Active Chest 1V Frontal [CR] Stat Exams 11/21/18 20:31 Taken Head wo Cont [CT] Stat Exams 11/21/18 21:15 Taken CULTURE URINE [RM] Stat Lab 11/21/18 20:35 Received GLYCOSYLATED HEMOGLOBIN,HGBA1C [CHEM] Routine Lab 11/22/18 08:20 Received MAGNESIUM [CHEM] Routine Lab 11/22/18 09:15 Ordered MICROALB/CREAT RATIO, RANDM UR Stat Lab 11/22/18 07:59 Ordered OSMOLALITY, URINE Stat Lab 11/22/18 07:58 Ordered PRO B-TYPE NATRIUR PEPT,BNPPRO [CHEM] Stat Lab 11/22/18 08:20 Received SODIUM,URINE RANDOM [URCHEM] Routine Lab 11/22/18 09:00 Ordered TSH ULTRASENSITIVE [CHEM] Routine Lab 11/22/18 08:20 Received UA W/MICROSCOPIC [URIN] Routine Lab 11/22/18 09:00 Ordered Ondansetron [Zofran] Med 11/21/18 22:36 Active 4 mg IV Q4H PRN Pneumococcal Polyvalent-23 Vac [Pneumovax 23] Med 11/23/18 09:00 Once 0.5 ml IM .ONCE ONE Sodium Chloride 0.9% [Normal Saline] 1,000 ml Med 11/21/18 22:45 Active IV ASDIRECTED Sodium Chloride 0.9% [Saline Flush] Med 11/21/18 22:36 Active 10 ml FLUSH ASDIRECTED PRN Peripheral IV Insertion Adult [OM.PC] Routine Oth 11/21/18 22:36 Ordered Resuscitation Status Routine Resus Stat 11/21/18 22:36 Ordered EKG 12 Lead [EK] Routine Ther 11/21/18 20:31 Ordered Medication Orders Sodium Chloride (Normal Saline) 1,000 mls @ 125 mls/hr IV ASDIRECTED VERONICA Last Admin: 11/22/18 07:46 Dose: 125 mls/hr Infusion: 11/22/18 06:45 Dose: 125 mls/hr Admin: 11/21/18 22:45 Dose: 125 mls/hr Ondansetron HCl (Zofran) 4 mg IV Q4H PRN PRN Reason: Nausea/Vomiting Pneumococcal Polyvalent Vaccine (Pneumovax 23) 0.5 ml IM .ONCE ONE Stop: 11/23/18 09:01 Sodium Chloride (Saline Flush) 10 ml FLUSH ASDIRECTED PRN PRN Reason: Keep Vein Open Assessment/Plan Comment:: # Hyponatremia-Improving - will continue IV NS. repeat labs this afternoon # UTI - Pending urine culture - will start Macrobid 100 mg BID for 5 days # COLE- improving - continue IV fluid # HTN - unknown medication history, patient BP is actually low during this hospitalization. will hold all her home medication
[2018-11-22] MEDS: Nitrofurantoin Monohydrate/Macrocrystalline 100 MG Cap PO SCH ×2 (10:19→20:50)
[2018-11-22] MEDS ORDERED: Mirtazapine 15 MG Tab PO SCH (21:00)
[2018-11-23] MEDS ORDERED: Naproxen 500 MG Tab PO PRN (08:21)
[2018-11-23 08:31] LABS: CREATININE, URINE 12.6 mg/dL (Not Estab.); MICROALB/CREAT RATIO 38.1 mg/g creat (0.0-30.0)
[2018-11-23] MEDS ORDERED: Pneumococcal Polyvalent-23 Vaccine 0.5 ML SDV IM ONE (09:00)
[2018-11-23] MEDS ORDERED: Sodium Chloride 1 GM Tab PO SCH (09:00)
[2018-11-23] MEDS: Nitrofurantoin Monohydrate/Macrocrystalline 100 MG Cap PO SCH (09:09)
--- NOTE | 2018-11-23 09:12 | CR ---
INDICATION: Shortness of breath. CHEST: An AP portable upright view of the chest was obtained 11/21/18 and compared with 12/26/17, again revealing somewhat prominent heart with tortuous calcified aorta, compatible with ASHD. No definite evidence of CHF is seen. No definite active infiltrate or effusion was seen. Evidence of exogenous obesity is suggested. The lungs appear to be somewhat hyperaerated with slightly flattened diaphragm leaves, raising question of progressive COPD and/or exacerbation of COPD. Overlying EKG leads are noted. IMPRESSION: No definite acute process - findings as noted above include possibility of progressive and/or exacerbated COPD, ASHD. MTDD
--- NOTE | 2018-11-24 06:28 | DISCH ---
DISCHARGE DATE: 11/23/2018 HISTORY: Ms. Ryan is an 82-year-old resident of [place], [place], with a history of chronic essential hypertension. She came into the emergency room because of dizziness. On evaluation in the emergency room, she was found to be hyponatremic with a sodium of 111, blood pressure 161/64. She complained of dizziness and headache. The patient denied any symptoms of nausea, vomiting, or diarrhea; however, she states she has had a poor appetite and has not been eating well. She was admitted to acute care. She was started on IV hydration with normal saline, and by day 2 of hospitalization, her sodium was up to 120, 126 later in the day, and this morning was up to 131. She was eating better and her appetite was improving. She still had slight dizziness when up. Also of note is that she had a bump in troponin from 0.032 to 0.108 and back down to 0.089 with an accompanying BNP of 3680. Albumin was low, and urinalysis was positive for greater than 100 white cells, 20 to 30 red cells. Culture positive for gram- negative chaka. The patient was treated with oral Macrobid for her UTI. She was given mirtazapine 50 mg at bedtime for insomnia. Because of knee arthritis, at her daughter's request, she was restarted on naproxen 500 mg b.i.d., and she was started on a sodium chloride tablet 1 g daily. The patient was given a Pneumovax vaccine during her hospital stay. Further lab workup showed a urine sodium of 28. EKG showed normal sinus rhythm at 63 beats per minute; no ischemic changes. Monitoring of her blood pressure during hospitalization included the initial blood pressure of 160/65, rise to 172/73, and then back to 146/67. The patient denied chest pain or dyspnea during hospitalization. Labs pending at the time of discharge include a serum cortisol level and a.m. cortisol level. Her hemoglobin returned at 9.6 with MCV of 84. The patient is discharged to home in improved condition. She is instructed to take medications as follows: 1. Sodium chloride 1 g daily. 2. Naproxen 500 mg b.i.d. p.r.n. knee arthritis. 3. Remeron 15 mg at bedtime. 4. Macrobid 100 mg b.i.d. x5 days. She is asked to have follow up with her regular doctor in [place] within 2 weeks with followup laboratory studies and blood pressure check and re- evaluation for potential cardiac symptoms. PRIMARY FINAL DIAGNOSES: 1. Hyponatremia, felt due to syndrome of inappropriate antidiuretic hormone, cause unclear. Evaluation for this included a normal CT of the head and a normal chest x-ray. 2. Normocytic anemia, cause unclear. 3. Nontransmural myocardial infarction. 4. Urinary tract infection. 5. Osteoarthritis, knees. /[id number] LIBIA/MODL
--- NOTE | 2018-11-26 10:34 | DISCH ---
DISCHARGE DATE: 11/23/2018 ADDENDUM: MEDICATIONS ON DISCHARGE: Diltiazem 240 mg daily. /[id number] LIBIA/PRIYANKA
== END 2018-11-23 13:50 | disposition home or self-care (01) | DRG 424 ==
LOC: FB.ED 20:26 → FB.MS 22:36 → UNDOADMIN 22:36 → FB.ICU 22:36 → FB.MS 11-22 10:00
PROVIDERS: ADMIT Family Medicine; ATTEND Family Medicine
DX: E22.2 Syndrome of inappropriate secretion of antidiuretic hormone (principal); N39.0 Urinary tract infection, site not specified; N17.9 Acute kidney failure, unspecified; I21.4 Non-ST elevation (NSTEMI) myocardial infarction; D64.9 Anemia, unspecified; B96.1 Klebsiella pneumoniae [K. pneumoniae] as the cause of diseases classified elsewhere; I10 Essential (primary) hypertension; Z87.891 Personal history of nicotine dependence; M17.0 Bilateral primary osteoarthritis of knee; E83.42 Hypomagnesemia; R42 Dizziness and giddiness; Z23 Encounter for immunization; G47.00 Insomnia, unspecified; J45.909 Unspecified asthma, uncomplicated; E78.00 Pure hypercholesterolemia, unspecified; H54.7 Unspecified visual loss; Z87.11 Personal history of peptic ulcer disease; Z90.49 Acquired absence of other specified parts of digestive tract; Z88.6 Allergy status to analgesic agent; Z88.8 Allergy status to other drugs, medicaments and biological substances
CPT/HCPCS: 36415; 70450; 71045; 80048; 80053; 81001; 82043; 82533; 82570; 83036; 83735; 83880; 83935; 84300; 84443; 84484; 85025; 85379; 85610; 87086; 87088; 87186; 90732; 93005; 93306; 94640; 96361; 96365; 96367; 97165-GO; 99285-25; A9270-GY; G0009; J0696; J3475; J7030; J7050; J7620-GY

== ENCOUNTER 2018-12-12 12:25 | Emergency (ER) | payer MEDICAID ==
[2018-12-12] MEDS ORDERED: Chlorthalidone 25 MG Tab PO ONE (13:00)
--- NOTE | 2018-12-12 13:20 | EDM.PDOC ---
ED HPI GENERAL MEDICAL PROBLEM - General Chief Complaint: General Stated Complaint: HIGH BP Time Seen by Provider: 12/12/18 13:00 Source of Information: Reports: Patient, Old Records History Limitations: Reports: Language Barrier - History of Present Illness INITIAL COMMENTS - FREE TEXT/NARRATIVE: Kacey returns to [facility] ED with elevated BP 195/105 detected at the Clinic, and was advised further evaluation. She reports some lt headiness, but no chest pain or SOB. She was hospitalized at [facility] on November 23, 2018 for hyponatremia and hypertension, and responded to saline infusion. SIADH was suspected, and she was discharged on salt tabs, Cartia XT 240 mg, Naproxen and Remeron. Apresoline 10 mg bid was added about 10 days ago. She denies excessive water intake, demonstrating 1/2 L bottles of cranberry juice and gatorade. - Related Data Allergies Allergy/AdvReac Type Severity Reaction Status Date / Time acetaminophen [From Tylenol] Allergy Cannot Verified 11/21/18 20:29 Remember aspirin Allergy Cannot Verified 11/21/18 20:29 Remember ibuprofen Allergy Difficulty Verified 11/22/18 01:46 Breathing Home Meds: Home Meds FA/Lycopene/Lut/MV,Ca,Iron,Min [Centrum] 1 tab PO DAILY 02/07/18 [History] Diltiazem HCl [Cartia Xt] 240 mg PO DAILY 11/22/18 [History] Ibuprofen 400 mg PO TID PRN 12/12/18 [History] Mirtazapine 15 mg PO BEDTIME 12/12/18 [History] Sodium Chloride 1 gm PO DAILY 12/12/18 [History] hydrALAZINE [Apresoline] 10 mg PO Q12HR 12/12/18 [History] Past Medical History HEENT History: Reports: Impaired Vision Other HEENT History: wears glasses Cardiovascular History: Reports: High Cholesterol, Hypertension Respiratory History: Reports: Asthma Gastrointestinal History: Reports: Gastritis, Other (See Below) Other Gastrointestinal History: GI ulcer COTA History: Reports: Musculoskeletal History: Reports: Arthritis Neurological History: Reports: Vertigo Dermatologic History: Reports: Other (See Below) Other Dermatologic History: dry skin - Past Surgical History GI Surgical History: Reports: Cholecystectomy Social & Family History - Family History Family Medical History: Unobtainable - Caffeine Use Caffeine Use: Reports: Coffee ED ROS GENERAL - Review of Systems Review Of Systems: See Below Constitutional: Reports: Malaise HEENT: Reports: No Symptoms Respiratory: Reports: No Symptoms Cardiovascular: Reports: Blood Pressure Problem, Lightheadedness Endocrine: Reports: No Symptoms GI/Abdominal: Reports: No Symptoms : Reports: No Symptoms Musculoskeletal: Reports: Joint Pain Skin: Reports: No Symptoms Neurological: Reports: Dizziness Psychiatric: Reports: No Symptoms Hematologic/Lymphatic: Reports: No Symptoms Immunologic: Reports: No Symptoms ED EXAM, GENERAL - Physical Exam Exam: See Below Exam Limited By: Language Barrier General Appearance: Alert, WD/WN, No Apparent Distress Eye Exam: Bilateral Eye: EOMI, Normal Inspection, PERRL Ears: Normal External Exam Nose: Normal Inspection Throat/Mouth: Normal Inspection, Normal Voice Head: Normocephalic Neck: Normal Inspection, Supple, Non-Tender Respiratory/Chest: Lungs Clear, Normal Breath Sounds, Chest Non-Tender Cardiovascular: Regular Rate, Rhythm, No Edema, No Murmur GI/Abdominal: Normal Bowel Sounds, Soft, Non-Tender, No Organomegaly, No Distention, No Mass (Female) Exam: Deferred Rectal (Female) Exam: Deferred Back Exam: Normal Inspection Extremities: Normal Inspection Neurological: Alert, Oriented, CN II-XII Intact, No Motor/Sensory Deficits Psychiatric: Normal Affect, Normal Mood Skin Exam: Warm, Dry, Intact, Normal Color Lymphatic: No Adenopathy Course - Vital Signs Text/Narrative:: Following assessment, I administered Chlorthalidone 25 mg po, with no change in BP over an hour of observation. I then administered Apresoline 10 mg po, with BP 161/97 in about 30 minutes. Screening labs note resolution of hyponatremia, with se and urine osm pending. The calc fkr=[id number]. SIADH seems unlikely at this time. Last Recorded V/S: Last Vital Signs Temp 36.8 C 12/12/18 12:45 Pulse 103 H 12/12/18 12:45 Resp 15 12/12/18 15:02 BP 161/97 H 12/12/18 15:11 Pulse Ox 98 12/12/18 15:02 - Orders/Labs/Meds Orders: Active Orders 24 hr Category Date Time Status OSMOLALITY Urgent Lab 12/12/18 14:35 Received OSMOLALITY, URINE Urgent Lab 12/12/18 13:05 Received Labs: Laboratory Tests 03/12/12/18 12/12/18 Range/Units 13:05 13:07 13:07 WBC 6.2 (4.5-12.0) X10-3/uL RBC 4.31 (3.23-5.20) x10(6)uL Hgb 12.4 (11.5-15.5) g/dL Hct 37.0 (30.0-51.3) % MCV 85.7 (80-96) fL MCH 28.7 (27.7-33.6) pg MCHC 33.5 (32.2-35.4) g/dL RDW 14.0 (11.5-15.5) % Plt Count 347 (125-369) X10(3)uL MPV 7.6 (7.4-10.4) fL Neut % (Auto) 53.2 (46-82) % Lymph % (Auto) 37.6 H (13-37) % [place] % (Auto) 7.0 (4-12) % Eos % (Auto) 2 (1.0-5.0) % Baso % (Auto) 1 (0-2) % Neut # (Auto) 3.4 (1.6-8.3) # Lymph # (Auto) 2.3 (0.6-5.0) # [place] # (Auto) 0.4 (0.0-1.3) # Eos # (Auto) 0.1 (0.0-0.8) # Baso # (Auto) 0.0 (0.0-0.2) # Sodium (135-145) mmol/L Potassium (3.5-5.3) mmol/L Chloride (100-110) mmol/L Carbon Dioxide (21-32) mmol/L BUN (7-18) mg/dL Creatinine (0.55-1.02) mg/dL Est Cr Clr Drug Dosing mL/min Estimated GFR (MDRD) (>60) BUN/Creatinine Ratio (9-20) Glucose (80-116) mg/dL Calcium (8.6-10.2) mg/dL Urine Color Yellow (YELLOW) Urine Appearance Clear (CLEAR) Urine pH 8.0 H (5.0-6.5) Ur Specific [place] 1.010 (1.010-1.025) Urine Protein Negative (NEGATIVE) mg/dL Urine Glucose (UA) Normal (NORMAL) mg/dL Urine Ketones Negative (NEGATIVE) mg/dL Urine Occult Blood Negative (NEGATIVE) Urine Nitrite Negative (NEGATIVE) Urine Bilirubin Negative (NEGATIVE) Urine Urobilinogen Normal (NEGATIVE) mg/dL Ur Leukocyte Esterase Negative (NEGATIVE) Urine RBC 0-5 (0-5) Urine WBC 0-5 (0-5) Ur Squamous Epith Cells Rare (NS,R,O) Urine Bacteria Not seen (NS) Ur Random Sodium 74 mmol/L Ur Random Potassium 16.9 mmol/L 12/12/18 Range/Units 13:07 WBC (4.5-12.0) X10-3/uL RBC (3.23-5.20) x10(6)uL Hgb (11.5-15.5) g/dL Hct (30.0-51.3) % MCV (80-96) fL MCH (27.7-33.6) pg MCHC (32.2-35.4) g/dL RDW (11.5-15.5) % Plt Count (125-369) X10(3)uL MPV (7.4-10.4) fL Neut % (Auto) (46-82) % Lymph % (Auto) (13-37) % [place] % (Auto) (4-12) % Eos % (Auto) (1.0-5.0) % Baso % (Auto) (0-2) % Neut # (Auto) (1.6-8.3) # Lymph # (Auto) (0.6-5.0) # [place] # (Auto) (0.0-1.3) # Eos # (Auto) (0.0-0.8) # Baso # (Auto) (0.0-0.2) # Sodium 137 (135-145) mmol/L Potassium 4.5 (3.5-5.3) mmol/L Chloride 100 (100-110) mmol/L Carbon Dioxide 27 (21-32) mmol/L BUN 19 H (7-18) mg/dL Creatinine 1.4 H (0.55-1.02) mg/dL Est Cr Clr Drug Dosing 22.64 mL/min Estimated GFR (MDRD) 36 L (>60) BUN/Creatinine Ratio 13.6 (9-20) Glucose 132 H (80-116) mg/dL Calcium 9.3 (8.6-10.2) mg/dL Urine Color (YELLOW) Urine Appearance (CLEAR) Urine pH (5.0-6.5) Ur Specific [place] (1.010-1.025) Urine Protein (NEGATIVE) mg/dL Urine Glucose (UA) (NORMAL) mg/dL Urine Ketones (NEGATIVE) mg/dL Urine Occult Blood (NEGATIVE) Urine Nitrite (NEGATIVE) Urine Bilirubin (NEGATIVE) Urine Urobilinogen (NEGATIVE) mg/dL Ur Leukocyte Esterase (NEGATIVE) Urine RBC (0-5) Urine WBC (0-5) Ur Squamous Epith Cells (NS,R,O) Urine Bacteria (NS) Ur Random Sodium mmol/L Ur Random Potassium mmol/L Meds: Medications Discontinued Medications Generic Name Dose Route Start Last Admin Trade Name Freq PRN Reason Stop Dose Admin Chlorthalidone 25 mg 12/12/18 13:00 12/12/18 13:10 Chlorthalidone PO 12/12/18 13:01 25 mg ONETIME ONE Administration Departure - Departure Time of Disposition: 15:18 Disposition: Home, Self-Care 01 Condition: Good Clinical Impression: Hypertension Qualifiers: Hypertension type: essential hypertension Qualified Code(s): I10 - Essential ( primary) hypertension - Discharge Information *PRESCRIPTION DRUG MONITORING PROGRAM REVIEWED*: Not Applicable *COPY OF PRESCRIPTION DRUG MONITORING REPORT IN PATIENT TARUN: Not Applicable Referrals: Nataliia Elder NP [Primary Care Provider] - Forms: ED Department Discharge - Problem List & Annotations (1) Hypertension SNOMED Code(s): 56662169 Code(s): I10 - ESSENTIAL (PRIMARY) HYPERTENSION Status: Acute Current Visit: Yes Annotation/Comment:: I suggested continuing Cartia XT 240 mg qd, and increase Apresoline 10 mg tid. She may dc the salt tabs. Qualifiers: Hypertension type: essential hypertension Qualified Code(s): I10 - Essential (primary) hypertension - Problem List Review Problem List Initiated/Reviewed/Updated: Yes - My Orders Last 24 Hours: My Active Orders 12/12/18 13:05 OSMOLALITY, URINE Urgent 12/12/18 14:35 OSMOLALITY Urgent - Assessment/Plan Last 24 Hours: My Active Orders 12/12/18 13:05 OSMOLALITY, URINE Urgent 12/12/18 14:35 OSMOLALITY Urgent Plan: Follow up with PCP.
== END 2018-12-12 15:25 | disposition home or self-care (01) ==
LOC: FB.ED 12:25
DX: I10 Essential (primary) hypertension (principal); E78.00 Pure hypercholesterolemia, unspecified; J45.909 Unspecified asthma, uncomplicated; Z88.8 Allergy status to other drugs, medicaments and biological substances; Z79.899 Other long term (current) drug therapy
CPT/HCPCS: 36415; 80048; 81001; 83930; 83935; 84133; 84300; 85025; 99281; A9270

== ENCOUNTER 2021-02-19 22:46 | Emergency (ER) | payer MEDICAID, OTHER ==
[2021-02-19] MEDS ORDERED: Acetaminophen 500 MG Tab PO ONE (23:34)
--- NOTE | 2021-02-19 23:40 | EDM.PDOC ---
ED HPI GENERAL MEDICAL PROBLEM - General Stated Complaint: BLOOD SUGAR HIGH Time Seen by Provider: 02/19/21 23:05 Source of Information: Reports: Patient, Family History Limitations: Reports: Language Barrier - History of Present Illness INITIAL COMMENTS - FREE TEXT/NARRATIVE: c/o shakiness, sob, and bitemporal GROVER has h/o anxiety, on hydralazine 50 mg tid and dilt CD 240 mg/d for htn which she has been taking worried that BP is too high altho seems okay lives with and dtr and grandchild RN Maria Ines is at bedside, pt is grandmother to Maria Ines's boyfriend PCP is [facility] in [facility] has h/o of UTI PMH: htn, CKD, anxiety - Related Data Allergies Allergy/AdvReac Type Severity Reaction Status Date / Time acetaminophen [From Tylenol] Allergy Cannot Verified 11/21/18 20:29 Remember aspirin Allergy Cannot Verified 11/21/18 20:29 Remember ibuprofen Allergy Difficulty Verified 11/22/18 01:46 Breathing Home Meds: Home Meds FA/Lycopene/Lut/MV,Ca,Iron,Min [Centrum] 1 tab PO DAILY 02/07/18 [History] dilTIAZem HCL [Cartia Xt] 240 mg PO DAILY 11/22/18 [History] Ibuprofen 400 mg PO TID PRN 12/12/18 [History] Mirtazapine 15 mg PO BEDTIME 12/12/18 [History] Sodium Chloride 1 gm PO DAILY 12/12/18 [History] hydrALAZINE [Apresoline] 10 mg PO Q12HR 12/12/18 [History] hydrOXYzine HCL [Hydroxyzine HCl] 25 mg PO TID PRN #21 tablet 02/20/21 [Rx] Past Medical History HEENT History: Reports: Impaired Vision Other HEENT History: wears glasses Cardiovascular History: Reports: High Cholesterol, Hypertension Respiratory History: Reports: Asthma Gastrointestinal History: Reports: Gastritis, Other (See Below) Other Gastrointestinal History: GI ulcer [employer] History: Reports: Musculoskeletal History: Reports: Arthritis Neurological History: Reports: Vertigo Dermatologic History: Reports: Other (See Below) Other Dermatologic History: dry skin - Past Surgical History GI Surgical History: Reports: Cholecystectomy Social & Family History - Family History Family Medical History: Unobtainable - Caffeine Use Caffeine Use: Reports: Coffee ED ROS GENERAL - Review of Systems Review Of Systems: See Below Constitutional: Reports: No Symptoms HEENT: Reports: No Symptoms Respiratory: Reports: Shortness of Breath Cardiovascular: Reports: No Symptoms Endocrine: Reports: No Symptoms GI/Abdominal: Reports: No Symptoms : Reports: No Symptoms Musculoskeletal: Reports: No Symptoms Skin: Reports: No Symptoms Neurological: Reports: Headache Psychiatric: Reports: No Symptoms Hematologic/Lymphatic: Reports: No Symptoms Immunologic: Reports: No Symptoms ED EXAM, GENERAL - Physical Exam Exam: See Below Exam Limited By: No Limitations General Appearance: Alert, WD/WN, No Apparent Distress, Other (alert, nonill, pleasant, anxious, nonill, no dyspnea) Eye Exam: Bilateral Eye: EOMI Ears: Hearing Grossly Normal Nose: Normal Inspection Throat/Mouth: Normal Inspection, Normal Voice, No Airway Compromise Head: Atraumatic, Normocephalic Neck: Normal Inspection, Supple, Non-Tender, Full Range of Motion. No: Lymphadenopathy (R), Lymphadenopathy (L) Respiratory/Chest: No Respiratory Distress, Lungs Clear, Normal Breath Sounds, Chest Non-Tender, Other (no cough) Cardiovascular: Regular Rate, Rhythm, No Edema, No Murmur GI/Abdominal: Normal Bowel Sounds, Soft, Non-Tender, No Organomegaly Back Exam: Normal Inspection, Full Range of Motion Extremities: Normal Inspection, Normal Range of Motion, Non-Tender, No Pedal Edema Neurological: Alert, Oriented, CN II-XII Intact, Normal Cognition, No Motor/Sensory Deficits Psychiatric: Anxious Skin Exam: Warm, Dry, Intact, Normal Color, No Rash Lymphatic: No Adenopathy Course - Vital Signs Last Recorded V/S: Last Vital Signs Temp Pulse 87 02/19/21 23:55 Resp 18 02/19/21 23:55 BP 180/81 H 02/19/21 23:55 Pulse Ox 94 L 02/19/21 23:55 - Orders/Labs/Meds Orders: Active Orders 24 hr Category Date Time Status hydrOXYzine HCL [Atarax] Med 02/20/21 00:29 Once 25 mg PO ONETIME ONE Medication Orders Hydroxyzine HCl (Hydroxyzine Hcl 25 Mg Tab) 25 mg PO ONETIME ONE Stop: 02/20/21 00:30 Labs: Laboratory Tests 06/04/21 06/04/21 06/04/21 Range/Units 23:44 23:44 23:44 WBC 6.5 (3.0-10.3) x10-3/uL RBC 4.51 (3.60-5.20) x10(6)uL Hgb 12.9 (11.4-15.5) g/dL Hct 38.2 (34.2-48.2) % MCV 84.6 (76.7-100.5) fL MCH 28.5 (23.9-33.9) pg MCHC 33.7 (31.9-34.8) g/dL RDW 13.1 (12.3-16.5) % Plt Count 205 (151-488) x10(3)uL MPV 8.1 (7.1-12.4) fL Neut % (Auto) 45.5 (30.8-76.2) % Lymph % (Auto) 41.5 (18.4-52.1) % [place] % (Auto) 10.4 (4.4-15.7) % Eos % (Auto) 1.5 (0.6-8.1) % Baso % (Auto) 1.1 (0.2-1.5) % Neut # (Auto) 2.9 (1.5-6.3) x10-3/uL Lymph # (Auto) 2.7 (1.0-4.4) x10-3/uL [place] # (Auto) 0.7 (0.3-1.0) x10-3/uL Eos # (Auto) 0.1 (0.0-0.8) x10-3/uL Baso # (Auto) 0.1 (0.0-0.1) x10-3/uL Sodium 129 L (135-145) mmol/L Potassium 3.8 (3.5-5.3) mmol/L Chloride 93 L D (100-110) mmol/L Carbon Dioxide 24 (21-32) mmol/L BUN 15 (7-18) mg/dL Creatinine 1.4 H (0.55-1.02) mg/dL Est Cr Clr Drug Dosing TNP Estimated GFR (MDRD) 36 L (>60) BUN/Creatinine Ratio 10.7 (9-20) Glucose 134 H (80-116) mg/dL Calcium 9.0 (8.6-10.2) mg/dL Total Bilirubin 0.4 (0.1-1.3) mg/dL AST 30 H D (5-25) IU/L ALT 33 D (12-36) U/L Alkaline Phosphatase 84 (56-112) IU/L C-Reactive Protein 0.6 (0.5-0.9) mg/dL Total Protein 9.4 H (6.0-8.0) g/dL Albumin 4.2 (3.2-4.6) g/dL Globulin 5.2 g/dL Albumin/Globulin Ratio 0.8 Urine Color (YELLOW) Urine Appearance (CLEAR) Urine pH (5.0-6.5) Ur Specific [place] (1.010-1.025) Urine Protein (NEGATIVE) mg/dL Urine Glucose (UA) (NORMAL) mg/dL Urine Ketones (NEGATIVE) mg/dL Urine Occult Blood (NEGATIVE) Urine Nitrite (NEGATIVE) Urine Bilirubin (NEGATIVE) Urine Urobilinogen (NEGATIVE) mg/dL Ur Leukocyte Esterase (NEGATIVE) Urine RBC (0-5) Urine WBC (0-5) Ur Squamous Epith Cells (NS,R,O) Urine Bacteria (NS) Urine Mucus (NS) 02/19/21 Range/Units 23:58 WBC (3.0-10.3) x10-3/uL RBC (3.60-5.20) x10(6)uL Hgb (11.4-15.5) g/dL Hct (34.2-48.2) % MCV (76.7-100.5) fL MCH (23.9-33.9) pg MCHC (31.9-34.8) g/dL RDW (12.3-16.5) % Plt Count (151-488) x10(3)uL MPV (7.1-12.4) fL Neut % (Auto) (30.8-76.2) % Lymph % (Auto) (18.4-52.1) % [place] % (Auto) (4.4-15.7) % Eos % (Auto) (0.6-8.1) % Baso % (Auto) (0.2-1.5) % Neut # (Auto) (1.5-6.3) x10-3/uL Lymph # (Auto) (1.0-4.4) x10-3/uL [place] # (Auto) (0.3-1.0) x10-3/uL Eos # (Auto) (0.0-0.8) x10-3/uL Baso # (Auto) (0.0-0.1) x10-3/uL Sodium (135-145) mmol/L Potassium (3.5-5.3) mmol/L Chloride (100-110) mmol/L Carbon Dioxide (21-32) mmol/L BUN (7-18) mg/dL Creatinine (0.55-1.02) mg/dL Est Cr Clr Drug Dosing Estimated GFR (MDRD) (>60) BUN/Creatinine Ratio (9-20) Glucose (80-116) mg/dL Calcium (8.6-10.2) mg/dL Total Bilirubin (0.1-1.3) mg/dL AST (5-25) IU/L ALT (12-36) U/L Alkaline Phosphatase (56-112) IU/L C-Reactive Protein (0.5-0.9) mg/dL Total Protein (6.0-8.0) g/dL Albumin (3.2-4.6) g/dL Globulin g/dL Albumin/Globulin Ratio Urine Color Yellow (YELLOW) Urine Appearance Clear (CLEAR) Urine pH 7.0 H (5.0-6.5) Ur Specific [place] 1.015 (1.010-1.025) Urine Protein Negative (NEGATIVE) mg/dL Urine Glucose (UA) Normal (NORMAL) mg/dL Urine Ketones Negative (NEGATIVE) mg/dL Urine Occult Blood Negative (NEGATIVE) Urine Nitrite Negative (NEGATIVE) Urine Bilirubin Negative (NEGATIVE) Urine Urobilinogen Normal (NEGATIVE) mg/dL Ur Leukocyte Esterase Negative (NEGATIVE) Urine RBC 0-5 (0-5) Urine WBC 0-5 (0-5) Ur Squamous Epith Cells Occasional (NS,R,O) Urine Bacteria Few H (NS) Urine Mucus Occasional H (NS) Meds: Medications Generic Name Dose Route Start Last Admin Trade Name Freq PRN Reason Stop Dose Admin Hydroxyzine HCl 25 mg 02/20/21 00:29 Hydroxyzine Hcl 25 Mg Tab PO 02/20/21 00:30 ONETIME ONE Discontinued Medications Generic Name Dose Route Start Last Admin Trade Name Freq PRN Reason Stop Dose Admin Acetaminophen 1,000 mg 02/19/21 23:34 02/19/21 23:50 Acetaminophen 500 Mg Tab PO 02/19/21 23:35 1,000 mg ONETIME ONE Administration - Re-Assessments/Exams Free Text/Narrative Re-Assessment/Exam: 02/20/21 00:38 labs appear to be fine inc'd TP and mild increase of LFTs are of uncertain clinical significance cannot exclude mild passive liver congestion although clinically does not show evidence of HF exacerbation PO 100% on RA temp reached 104 today, lives in air conditioned apartment no longer on mirtazapine, restarting may be a consideration, to be d/w PCP mild inc'd SBP in ED c/w anxiety Maria Ines SIM did request meds for anxiety, given hydroxyzine Departure - Departure Time of Disposition: 00:29 Disposition: Home, Self-Care 01 Condition: Good Clinical Impression: Heat exhaustion, Tension headache, Anxiety - Discharge Information *PRESCRIPTION DRUG MONITORING PROGRAM REVIEWED*: Not Applicable *COPY OF PRESCRIPTION DRUG MONITORING REPORT IN PATIENT TARUN: Not Applicable Prescriptions: hydrOXYzine HCL [Hydroxyzine HCl] 25 mg PO TID PRN #21 tablet PRN Reason: Anxiety Instructions: Heat Exhaustion, Preventing Heat Exhaustion, Adult Additional Instructions: For headache, take acetaminophen 500 mg 2 tabs with meals and bedtime for 4 doses. Get adequate rest. Your blood pressure appears to be fine. Your heart and lungs are doing well. Stay cool in the hot weather. For anxiety and stress, take hydroxyzine 25 mg 1 tab 3 times a day as needed. Continue your other medications, as you have been doing. See your doctor in one week for further recommendations. Para sa sakit ng ulo, kumuha ng acetaminophen 500 mg 2 tab na may pagkain at oras ng pagtulog para sa 4 na dosis. Kumuha ng sapat na pahinga. Ang ikole presyon ng dugo ay franc estrada. Anam angus ikole puso at baga. Manatiling cool sa mainit na panahon. Para sa pagkabalisa at stress, kumuha ng hydroxyzine 25 mg 1 tab 3 beses sa isang araw caty gopal. Ipagpatuloy angus powell iba triston mga susiotmiryam. Magpatingin sa iyong doktor sa isang linggo para sa kathia ibarra. Sepsis Event Note (ED) - Focused Exam Vital Signs: Vital Signs Pulse Resp BP Pulse Ox 02/19/21 23:55 87 18 180/81 H 94 L 02/19/21 23:40 92 18 177/84 H 94 L 02/19/21 22:50 89 18 177/81 H 100 - My Orders Last 24 Hours: My Active Orders 02/20/21 00:29 hydrOXYzine HCL [Atarax] 25 mg PO ONETIME ONE - Assessment/Plan Last 24 Hours: My Active Orders 02/20/21 00:29 hydrOXYzine HCL [Atarax] 25 mg PO ONETIME ONE
[2021-02-20] MEDS ORDERED: hydrOXYzine HCl 25 MG Tab PO ONE (00:29)
== END 2021-02-20 00:50 | disposition home or self-care (01) ==
LOC: FB.ED 22:46
DX: T67.5XXA Heat exhaustion, unspecified, initial encounter (principal); G44.209 Tension-type headache, unspecified, not intractable; F41.9 Anxiety disorder, unspecified; I10 Essential (primary) hypertension; J45.909 Unspecified asthma, uncomplicated; Z79.899 Other long term (current) drug therapy; Z88.6 Allergy status to analgesic agent
CPT/HCPCS: 36415; 80053; 81001; 85025; 86140; 99284; A9270